=== PATIENT | male | born 1960 | race Caucasian/White ===

== ENCOUNTER 2017-04-20 19:48 | Emergency (ER) | payer OTHER ==
[~2017-04-20] VITALS: Ht 175.3 cm; Wt 79.2 kg
[~2017-04-20 19:48] MED LIST: Flovent 110 mcg IH; PriLOSEC OTC PO; Singulair PO; [UNRECOGNIZED DRUG - OTHER] PO
[2017-04-20 20:28] LABS: HEMATOCRIT 41.9 % (38.0-50.0); MCH 31.5 PG (29.0-34.0); MCHC 35.3 G/DL (30.0-36.0); MCV 89.1 FL (86-99); MEAN PLAT.VOLUME 10.1 uM^3 (9.0-12.4); PLATELET COUNT 132 K/uL (156-360); RBC DIS.WIDTH-CV 12.5 % (11.8-14.6); RBC DIS.WIDTH-SD 41.1 % (39-53); WHITE BLOOD COUNT 6.7 K/uL (4.1-10.2)
[2017-04-20 20:42] LABS: CHLORIDE 109 mEq/L (99-109); POTASSIUM 3.8 mEq/L (3.7-5.4); SODIUM 143 mEq/L (136-147)
[2017-04-20 20:43] LABS: MAGNESIUM 2.1 mg/dL (1.3-2.7)
[2017-04-20 20:44] LABS: GLUCOSE 119 mg/dL (70-99)
[2017-04-20 20:46] LABS: ANION GAP 8 MEQ/L (2-14); TOTAL BILIRUBIN 0.8 mg/dL (0.0-1.0)
[2017-04-20 20:48] LABS: ALKALINE PHOSPHATASE 55 IU/L (3-129); GFR ESTIMATE (CALCULATED) > 59 mL/min/
[2017-04-20 20:49] LABS: UREA NITROGEN (BUN) 22 mg/dL (9-23)
[2017-04-20 20:51] LABS: CREATINE KINASE 81 IU/L (1-294); TOTAL CK 81 IU/L (1-294)
[2017-04-20 20:57] LABS: TROP-I INTERPRETATION NEGATIVE; TROPONIN-I < 0.01 ng/mL (0.0-0.30)
[2017-04-20 21:31] LABS: CK-MB 1.5 ng/mL (0.0-4.9)
[2017-04-21] MEDS ORDERED: ROBAXIN750 MG PO (00:04)
[2017-04-21] MEDS ORDERED: MOTRIN600 MG PO (00:04)
[2017-04-21 00:23] VITALS: BP 117/72
== END 2017-04-21 00:24 | disposition home or self-care (01) ==
LOC: EME → EDBD 19:48 → EME 19:48
PROVIDERS: Emergency Medicine
DX: S06.0X0A Concussion without loss of consciousness, initial encounter (principal); M54.12 Radiculopathy, cervical region; J45.909 Unspecified asthma, uncomplicated; K21.9 Gastro-esophageal reflux disease without esophagitis; W19.XXXD Unspecified fall, subsequent encounter
CPT/HCPCS: 70450; 80053; 82550; 82553; 83735; 84484; 85027; 93005; 99281; 99285; J1885; J2765; J7030